=== PATIENT | female | born 1995 | race Caucasian/White ===

== ENCOUNTER 2021-01-09 10:50 | Outpatient (CLI) | payer OTHER ==
[2021-01-10 02:28] LABS: SARS-CoV-2 PCR by NAA Not Detected (NotDetected)
== END 2021-01-09 10:51 | disposition home or self-care (01) ==
LOC: CSHLAB 10:50
PROVIDERS: ATTEND Family Medicine
DX: Z20.822 Contact with and (suspected) exposure to COVID-19 (principal)
CPT/HCPCS: 87635; U0003; U0005

== ENCOUNTER 2021-01-10 18:00 | Inpatient (IN) | payer MEDICAID, OTHER ==
[~2021-01-10 18:00] MED LIST: Misoprostol 100 MCG TAB VAG SCH
[2021-01-10 23:01] VITALS: BMI 27.9
[2021-01-10] MEDS ORDERED: Promethazine HCl 25 MG/ML VIAL IM PRN (23:51)
[2021-01-10] MEDS ORDERED: Ibuprofen 800 MG TAB PO PRN (23:51)
[2021-01-10] MEDS ORDERED: Ondansetron PF 4 MG/2 ML Vial IVP PRN (23:51)
[2021-01-10] MEDS ORDERED: Methylergonovine 0.2 MG/ML VIAL IM PRN (23:51)
[2021-01-10] MEDS ORDERED: Misoprostol 200 MCG TAB PR PRN (23:51)
[2021-01-10] MEDS ORDERED: Diphenoxylate HCl/Atropine Tablet PO PRN ×2 (23:51)
[2021-01-10] MEDS ORDERED: NS / Oxytocin 40 units/1000ml 1,000 ML IV PRN (23:51)
[2021-01-10] MEDS ORDERED: hydrALAZINE 20 MG/ML VIAL SLOW IVP PRN (23:51)
[2021-01-10] MEDS ORDERED: Butorphanol Tartrate 1 MG/ML VIAL SLOW IVP PRN (23:51)
[2021-01-10] MEDS ORDERED: Lidocaine 1% (PF) 30 ML VIAL SC PRN (23:51)
[2021-01-10] MEDS ORDERED: Carboprost 250 MCG/ML AMP IM PRN (23:51)
[2021-01-10] MEDS ORDERED: Acetaminophen 500 MG TAB PO PRN (23:51)
[2021-01-11 00:26] LABS: Hemoglobin 10.8 g/dL (12.0-15.5); Mean Corpuscular HGB CONC 34.2 g/dL (32.0-36.0); Mean Corpuscular Hemoglobin 30.7 pg (27.0-33.0); Mean Corpuscular Volume 89.8 fl (81.6-98.3); Mean Platelet Volume 12.9 fl (7.4-10.4); Platelet Count 153 10x3/uL (150-450); RBC Distribution Width 13.5 % (11.5-14.5); Red Blood Cell (RBC) Count 3.52 10x6/uL (3.90-5.03); White Blood Cell (WBC) Count 9.4 10x3/uL (3.5-10.5)
[2021-01-11 00:31] LABS: Glucose 88 mg/dL (70-105)
[2021-01-11 00:57] LABS: Hep B Surf Ag Non-Reactive S/CO (NonReactive); Syphilis Antibody Nonreactive (Nonreactive); Syphilis Antibody Index 0.03 S/CO (<1.00 Non-Reactive)
[2021-01-11 00:58] LABS: HBSAg Index 0.13 S/CO (0-0.99)
[2021-01-11] MEDS ORDERED: NS w/ Oxytocin 30 units 500 ML IVPB SCH ×2 (07:45→08:00)
[2021-01-11] MEDS ORDERED: NS w/ Oxytocin 30 units 500 ML IVPB PRN (07:45)
[2021-01-11] MEDS: Lactated Ringer's 1,000 ML IV SCH ×2 (08:21→16:13)
[2021-01-11] MEDS ORDERED: Fentanyl 4 mcg/Bup 0.1% Cadd 100 ML ONE (09:10)
[2021-01-11] MEDS ORDERED: Preparation H Ointment 28 GM TUBE PR PRN (15:44)
[2021-01-11] MEDS ORDERED: Milk Of Magnesia 30 ML UDCUP PO PRN (15:44)
[2021-01-11] MEDS ORDERED: Lanolin Ointment 7 GM TUBE TOP PRN (15:44)
[2021-01-11] MEDS ORDERED: Measles/Mumps/Rubella 10 MCG/0.5 ML VIAL SC ONE (15:44)
[2021-01-11] MEDS ORDERED: Varicella virus, LIVE 0.5 ML VIAL SC ONE (15:44)
[2021-01-11] MEDS ORDERED: Ondansetron PF 4 MG/2 ML Vial IVP PRN (15:44)
[2021-01-11] MEDS ORDERED: Benzocaine-Menthol 82.5 ML CAN TOP PRN (15:44)
[2021-01-11] MEDS ORDERED: Methylergonovine 0.2 MG/ML VIAL IM PRN (15:44)
[2021-01-11] MEDS ORDERED: Misoprostol 200 MCG TAB VAG PRN (15:44)
[2021-01-11] MEDS ORDERED: Bisacodyl 10 MG SUPP PR PRN (15:44)
[2021-01-11] MEDS ORDERED: Adacel (T-DAP) 0.5 ML SYRINGE IM ONE (15:44)
[2021-01-11] MEDS ORDERED: NS / Oxytocin 40 units/1000ml 1,000 ML IV SCH (15:44)
[2021-01-11] MEDS ORDERED: hydrALAZINE 20 MG/ML VIAL SLOW IVP PRN (15:44)
[2021-01-11] MEDS: Ferrous Sulfate 325 MG TAB PO SCH (16:17)
[2021-01-11] MEDS: Ibuprofen 800 MG TAB PO SCH ×2 (16:36→21:06)
[2021-01-11] MEDS: Docusate Calcium (SURFAK) 240 MG CAP PO SCH (21:06)
[2021-01-12] MEDS: Ibuprofen 800 MG TAB PO SCH ×2 (05:38→13:50)
[2021-01-12] MEDS: Ferrous Sulfate 325 MG TAB PO SCH (08:39)
[2021-01-12] MEDS: Docusate Calcium (SURFAK) 240 MG CAP PO SCH (08:51)
[2021-01-12] MEDS ORDERED: Prenatal Vitamin 1 TAB PO SCH (09:00)
[2021-01-12 11:39] VITALS: BP 111/67; TEMP 97.7
== END 2021-01-12 16:43 | disposition home or self-care (01) | DRG 807 ==
LOC: UNDOADMIN 22:40 → CSHLD 22:40 → CSHPP 01-11 16:41
PROVIDERS: ADMIT Family Medicine; ATTEND Family Medicine
PROC: 10E0XZZ Delivery of Products of Conception, External Approach (ICD-10-PCS; principal; 2021-01-11)
PROC: 3E0D7GC Introduction of Other Therapeutic Substance into Mouth and Pharynx, Via Natural or Artificial Opening (ICD-10-PCS; 2021-01-11)
DX: O24.425 Gestational diabetes mellitus in childbirth, controlled by oral hypoglycemic drugs (principal); Z37.0 Single live birth; O99.334 Smoking (tobacco) complicating childbirth; F17.210 Nicotine dependence, cigarettes, uncomplicated; O99.02 Anemia complicating childbirth; Z20.822 Contact with and (suspected) exposure to COVID-19; D64.9 Anemia, unspecified; O69.81X0 Labor and delivery complicated by cord around neck, without compression, not applicable or unspecified; Z3A.39 39 weeks gestation of pregnancy; Z71.6 Tobacco abuse counseling
CPT/HCPCS: 36416; 76815; 82947; 85027; 86780; 86850; 86900; 86901; 87340; J2590